=== PATIENT | female | born 1955 | race Caucasian/White ===

== ENCOUNTER 2022-12-17 10:04 | Emergency (ER) | payer MEDICARE, BC, SELFPAY ==
[2022-12-17 10:18] VITALS: BP 128/71; PULSE 78; RESP 16; TEMP 36.6; O2SAT 98; BMI 21.0
[2022-12-17 10:25] VITALS: RESP 16; O2SAT 98
--- NOTE | 2022-12-17 10:32 | CRLHL7_ITS ---
For Patients: As a result of the Century Cures Act, medical imaging exams and procedure reports are released immediately into your electronic medical record. You may view this report before your referring provider. If you have questions, please contact your health care provider. INDICATION: Fall. Nasal injury. TECHNIQUE: Noncontrast CT images acquired through the facial bones. COMPARISON: None. FINDINGS: Irregularity and mild depression of the bilateral nasal bones, likely secondary to underlying fractures. Nondisplaced, laterally angulated fracture of the frontal process of the right maxilla (series 2, image 95). Soft tissue swelling in the nasal folds. Right orbital floor fracture demonstrating 3 mm depression into the maxillary sinus and extending through the right infraorbital canal. The globes are symmetric. No retrobulbar hematoma or stranding. Mild paranasal sinus mucosal thickening. The mastoid air cells are clear. Limited images through the brain are without intracranial mass effect. IMPRESSION: 1. Mildly depressed right orbital floor fracture with extension through the right infraorbital canal. 2. Irregularity and mild depression of the bilateral nasal bones, likely secondary to underlying fractures. There is a nondisplaced, lateral angulated fracture of the anterior process of the right maxilla. Soft tissue swelling in the nasal folds. 3. No retrobulbar hemorrhage. Please note that all CT scans at this facility use dose modulation, iterative reconstruction, and/or weight-based dosing when appropriate to reduce radiation dose to as low as reasonably achievable. Dictated by Wojciech Rehman MD @ 12/17/2022 12:02:26 PM (Electronically Signed)
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
== END 2022-12-17 12:19 | disposition home or self-care (01) ==
PROVIDERS: Emergency Provider Internal Medicine; PCP Family Medicine
DX: S02.40CA Maxillary fracture, right side, initial encounter for closed fracture (principal); S02.85XA Fracture of orbit, unspecified, initial encounter for closed fracture; W01.0XXA Fall on same level from slipping, tripping and stumbling without subsequent striking against object, initial encounter; S80.211A Abrasion, right knee, initial encounter
CPT/HCPCS: 70486; 99283

== ENCOUNTER 2023-01-01 10:52 | Day surgery (SDC) | payer MEDICARE, BC, SELFPAY ==
[2023-01-01] VITALS (13 sets, daily range): BP systolic 129–164; BP diastolic 65–99; PULSE 94–107; RESP 15–24; TEMP 36.3–37.1; O2SAT 91–97; BMI 22.4
[2023-01-01] MEDS: OXYMETAZOLINE 0.05% NASAL SPRAY 2 SPRAY NOSTRIL-B (12:10)
[2023-01-01] MEDS: SODIUM CHLORIDE 0.9 % (FLUSH) 10 ML SYRINGE IVF (12:15)
[2023-01-01] MEDS: LACTATED RINGERS 1000 ML 1,000 ML 100 ML IV (12:15)
--- NOTE | 2023-01-01 12:49 | W.ANESCHARGE ---
Anesthesia Charges Start Date/Time Anesthesia Start Date: 01/01/23 Anesthesia Start Time: 13:40 Stop Date/Time Anesthesia Stop Date: 01/01/23 Anesthesia Stop Time: 14:26
[2023-01-01] MEDS: COCAINE HCL 4 % 4 ML SOLUTION NOSTRIL-B (13:55)
[2023-01-01] MEDS: BUPIVACAINE 0.5%/EPINEPHRINE 0.9 MG (30.9 ML) INJECTION (14:04)
[2023-01-01] MEDS: MUPIROCIN 1 GM PACKET 1 APPLIC TOPICAL (14:05)
[2023-01-01] MEDS: AYR SALINE NASAL GEL 1 APPLIC NOSTRIL-B (14:06)
--- NOTE | 2023-01-01 14:11 | W.PM.ENTPROC ---
Procedure Note Date of procedure: 01/01/23 Procedure: Preoperative diagnosis depressed left nasal fracture, deviated septum, nasal obstruction Postop same Procedure septoplasty, closed reduction nasal fracture. Under general endotracheal anesthesia patient was prepped and draped in usual fashion. The nose was decongested and injected. Incision was made in the septal mucosa anterior to the area 3 deflection mucosa elevate overlying that was elevated with a Hien dissector. The Hien dissector was used to cut through the cartilage and elevate the mucosa on the opposite side. A single piece of cartilage was removed straightened and returned to intraseptal space. The flap laid down nicely. The inferior turbinates were outfractured. The depressed left nasal fracture was identified marked externally with the fracture elevator in the fracture was easily elevated into good position. It appeared stable. Merocel pack was trimmed lengthwise coated in Bactroban and placed intranasally on each side of the septum. The patient procedure well was taken recovery in satisfactory condition blood loss was approximately 12 mL. Surgeon: Sixto Camarillo MD
--- NOTE | 2023-01-01 14:28 | W.ANESCHARGE ---
Anesthesia Charges Start Date/Time Anesthesia Start Date: 01/01/23 Anesthesia Start Time: 13:40 Stop Date/Time Anesthesia Stop Date: 01/01/23 Anesthesia Stop Time: 14:26
--- NOTE | 2023-01-01 14:58 | SUR.PHASEI ---
patient met discharge criteria per anesthesia
[2023-01-01] MEDS: IBUPROFEN 200 MG TABLET PO (15:25)
[2023-01-01] MEDS: ACETAMINOPHEN 325 MG TABLET PO (15:25)
== END 2023-01-01 16:36 | disposition home or self-care (01) ==
PROVIDERS: PCP Family Medicine; Visit Provider Otolaryngology
PROC: (CPT 30520; principal; 2023-01-01 13:45)
PROC: 0NSBXZZ Reposition Nasal Bone, External Approach (ICD-10-PCS; CPT 30520; 2023-01-01 13:45)
DX: J34.2 Deviated nasal septum (principal); S02.2XXA Fracture of nasal bones, initial encounter for closed fracture; J34.89 Other specified disorders of nose and nasal sinuses
CPT/HCPCS: 30520; 21320; 160; 82962; A9270; J0330; J2250; J2405; J2704; J3010; J7120

== ENCOUNTER 2023-03-28 10:59 | Emergency (ER) | payer MEDICARE, BC, SELFPAY ==
[2023-03-28 11:05] VITALS: BP 153/73; PULSE 78; RESP 18; TEMP 36.1; O2SAT 97
--- NOTE | 2023-03-28 11:18 | ED.EAR ---
HPI - Ear Problem General Time Seen by Provider: 11:18 Date Seen: 03/28/23 Chief complaint: Ear/Nose/Throat Problem Stated complaint: Foreign object L ear Time Seen by Provider: 03/28/23 11:18 Source: patient and RN notes reviewed Mode of arrival: ambulatory Limitations: no limitations History of Present Illness HPI Narrative: Patient has the rubber portion end of her hearing aid stuck in her left ear. It is been there since last night. Her did not feel he could access this. It is happen once before and he was able to get it out. This time he did not feel comfortable. Complaint: foreign body Location: left ear Related Data Home Medications Medication Instructions Recorded Confirmed colestipol 1 gram tablet 2 g PO BID 12/17/22 02/04/23 fluticasone propionate 50 2 spray intranasal DAILY 12/17/22 02/04/23 mcg/actuation nasal spray,suspension metformin 500 mg tablet 500 mg PO BID 12/17/22 02/04/23 rosuvastatin 10 mg tablet 10 mg PO QPM 12/17/22 02/04/23 sertraline 50 mg tablet 50 mg PO QAM 12/17/22 02/04/23 Previous Rx's Medication Instructions Recorded cephalexin 250 mg capsule 250 mg PO TID #18 caps 01/01/23 ondansetron 4 mg disintegrating 4 mg PO Q8H #10 tabs 01/01/23 tablet oxycodone 5 mg tablet 5 mg PO Q4H PRN pain #30 tabs 01/01/23 Allergies Allergy/AdvReac Type Severity Reaction Status Date / Time No Known Drug Allergies Allergy Verified 02/04/23 09:14 Review of Systems Narrative: As per HPI PFSH PFSH Social History Smoking Status: Never smoker Do you use any of these nicotine containing products: None Second hand tobacco smoke exposure: No How often do you have a drink containing alcohol: monthly or less How often do you have six or more drinks on one occasion: Never AUDIT-C Alcohol total score: 1 Non-prescribed substance use: denies use Caffeine: Yes Exam Const: Vital Signs, click to edit/add: Vital Signs - 24 hr 03/28/23 11:05 Temperature 97.0 F L Pulse Rate [Right Pulse Oximeter] 78 Respiratory Rate 18 Blood Pressure [Ri ght Upper Arm] 153/73 H Pulse Oximetry 97 Oxygen Delivery Me thod Room Air Documenting provider has reviewed patient's vital signs: yes Other: 67-year-old female is alert interactive no apparent distress. Face atraumatic. Has right hearing aid in place. External ear normal. Left external ears normal, visualization with the otoscope shows a black rubber portion of the hearing aid retained in the canal. Alligator was used and easily removed this piece. Visualization of the canal afterwards reveals no traumatic change, normal underlying TM. Course Vital Signs Vital signs: Initial Vital Signs Temperature 97.0 F L 03/28/23 11:05 Temperature Source Temporal Artery Scan 03/28/23 11:05 Pulse Rate 78 03/28/23 11:05 Respiratory Rate 18 03/28/23 11:05 Blood Pressure 153/73 H 03/28/23 11:05 Blood Pressure Mean 99 03/28/23 11:05 Blood Pressure Position Sitting 03/28/23 11:05 Pulse Oximetry 97 03/28/23 11:05 Oxygen Delivery Method Room Air 03/28/23 11:05 Vital Signs Temperature 97.0 F L 03/28/23 11:05 Pulse Rate 78 03/28/23 11:05 Respiratory Rate 18 03/28/23 11:05 Blood Pressure 153/73 H 03/28/23 11:05 Pulse Oximetry 97 03/28/23 11:05 Oxygen Delivery Method Room Air 03/28/23 11:05 Temperature 97.0 F L 03/28/23 11:05 Pulse Rate 78 03/28/23 11:05 Respiratory Rate 18 03/28/23 11:05 Blood Pressure 153/73 H 03/28/23 11:05 Pulse Oximetry 97 03/28/23 11:05 Oxygen Delivery Method Room Air 03/28/23 11:05 Critical Care Time Critical Care Time Critical Care Time: No Discharge Plan Discharge Clinical Impression: Acute foreign body of left ear canal Patient Disposition: Home, Self-Care Condition: Stable Instructions: Ear Foreign Body (ED) Additional Instructions: Check with your hearing aid provider to make sure that the pieces are correct for the hearing aid since this has happened twice now. You may resume hearing aid use without restrictions. There is no evidence of any underlying canal damage or irritation. Prescriptions: No Action metformin 500 mg tablet 500 mg PO BID fluticasone propionate 50 mcg/actuation spray,suspension 2 spray INTRANASAL DAILY sertraline 50 mg tablet 50 mg PO QAM colestipol 1 gram tablet 2 g PO BID rosuvastatin 10 mg tablet 10 mg PO QPM cephalexin 250 mg capsule 250 mg PO TID Qty: 18 0RF ondansetron 4 mg tablet,disintegrating 4 mg PO Q8H Qty: 10 0RF oxycodone 5 mg tablet 5 mg PO Q4H PRN (Reason: pain) Qty: 30 0RF Follow Up/Referrals: Kati Williamson MD [Primary Care Provider] - Stand Alone Forms: [facility] Info Instructions
== END 2023-03-28 11:52 | disposition home or self-care (01) ==
LOC: ED 11:28
PROVIDERS: Emergency Provider Family Medicine; PCP Family Medicine
DX: T16.2XXA Foreign body in left ear, initial encounter (principal)
CPT/HCPCS: 69200; 99282